=== PATIENT | female | born 1960 | race Caucasian/White ===

== ENCOUNTER 2019-01-25 01:07 | Emergency (ER) | payer OTHER ==
[~2019-01-25] VITALS: Ht 157.5 cm; Wt 79.4 kg
[~2019-01-25 01:07] MED LIST: ALTACE10 MG PO; HUMALOG100 U/ML; LEVEMIR100 U/ML SQ; LEVSIN0.125 MG PO; ORPH100T PO; PROTONIX40 MG PO; VASOTEC20 MG PO; ZANTAC300 MG PO; ZOFRAN4 MG PO
[2019-01-25] MEDS ORDERED: METOCLOPRAMIDE10 MG PO (10:38)
[2019-01-25] MEDS ORDERED: PEPCID AC20 MG PO (10:38)
== END 2019-01-25 13:36 | disposition home or self-care (01) ==
LOC: ER 01:07
DX: K29.70 Gastritis, unspecified, without bleeding (principal); E11.43 Type 2 diabetes mellitus with diabetic autonomic (poly)neuropathy; K31.84 Gastroparesis